=== PATIENT | female | born 1940 | race Two or more races ===

== ENCOUNTER 2018-10-29 05:39 | Day surgery (SDC) | payer OTHER ==
[~2018-10-29 05:39] MED LIST: COMBIGAN EYE DRO5 ML OP; COZAAR50 MG PO; FENOFIBRATE160 MG PO; JENTADUETO 2.51 EACH PO; OSTERA TABLET1 EACH PO; SYNTHROID112 MCG PO; TENORMIN50 M1 PO
[2018-10-29] MEDS ORDERED: MACROBID 100 M100 MG PO (10:41)
[2018-10-29] MEDS ORDERED: ULTRACET PO (10:42)
== END 2018-10-29 13:30 | disposition home or self-care (01) ==
LOC: CIR.AMB 05:39
DX: N81.3 Complete uterovaginal prolapse (principal)